=== PATIENT | male | born 1975 | race Caucasian/White ===

== ENCOUNTER 2017-06-25 10:31 | Emergency (ER) | payer MEDICAID ==
[2017-06-25 11:42] LABS: BASOPHIL % 0.6 % (0-2); PLATELET COUNT 277 x10^3mcL (130-400); RED CELL DISTRIBUTION WIDTH 13.2 % (11.5-14.5)
[2017-06-25 12:07] LABS: CALCIUM 9.1 mg/dL (8.5-10.1); CARBON DIOXIDE 26.5 mmol/L (21-32); CHLORIDE SERUM 104 mmol/L (98-107); CREATININE SERUM 0.9 mg/dL (0.7-1.3); GFR1 > 60 mL/min; GLUCOSE SERUM 126 mg/dL (74-106); SODIUM SERUM 140 mmol/L (136-145)
[2017-06-25 12:44] VITALS: BP 129/90
== END 2017-06-25 12:45 | disposition home or self-care (01) ==
LOC: ED 10:31 → EDSEX 10:31 → ED 12:45
PROVIDERS: Emergency Medicine
DX: E86.0 Dehydration (principal); R51 Headache

== ENCOUNTER 2018-05-11 10:52 | Emergency (ER) | payer MEDICAID ==
[~2018-05-11] VITALS: Ht 167.6 cm; Wt 86.6 kg
[2018-05-11 11:01] VITALS: BP 119/72; Ht 167.6 cm; Wt 86.6 kg
== END 2018-05-11 12:22 | disposition home or self-care (01) ==
LOC: ED 10:52
DX: R50.9 Fever, unspecified (principal); R00.0 Tachycardia, unspecified; M79.1 Myalgia

== ENCOUNTER 2019-03-12 19:25 | Emergency (ER) | payer MEDICAID ==
[~2019-03-12] VITALS: Ht 167.6 cm; Wt 79.4 kg
[2019-03-12 19:42] VITALS: Ht 167.6 cm; Wt 79.4 kg
[2019-03-12 21:04] VITALS: BP 124/70
== END 2019-03-12 20:55 | disposition home or self-care (01) ==
LOC: ED 19:25
DX: H11.31 Conjunctival hemorrhage, right eye (principal); J30.9 Allergic rhinitis, unspecified